=== PATIENT | male | born 1950 | race Two or more races ===

== ENCOUNTER → 2016-03-10 | Outpatient (CLI) | payer OTHER ==
--- NOTE | 2016-03-10 12:03 | CT ---
CT Brain (Without Contrast) at 1030 hours History: R20.2: Paresthesias of the skin. Numbness and occipital area and both arms and hands after sleeping with a pillow. Comparison: None. Technique: Axial computed tomographic images of the brain without contrast. Dose reduction technique s were utilized. Findings: Benign 5 mm calcification in the left frontal cortex, image 22 of series 2. Benign-appeari ng 4 mm calcification in the left lentiform nucleus, image 18 of series 2. There is a 2 mm calcificat ion in the left posterior superior frontal lobe sulcus region. Ventricles, cisterns, and sulci are no rmal without atrophy, hydrocephalus, midline shift/herniation, or epidural/subdural hematomas. No acu te intraparenchymal hemorrhage, definite infarct, or mass effect. Bone windows demonstrate no displac ed fractures. Paranasal sinuses and mastoid air cells are clear. Impression: 1. 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 2. No acute hemorrhage, hydrocephalus or mass effect. 3.Recommend MRI of the brain without and with contrast enhancement, if there is continued clinical co ncern.
== END ==
LOC: CIMAGING 10:18
PROVIDERS: ATTEND Family Medicine
DX: R90.89 Other abnormal findings on diagnostic imaging of central nervous system (principal)
CPT/HCPCS: 70450-PO

== ENCOUNTER → 2016-04-06 | Outpatient (CLI) | payer OTHER | LOC: FIMAGING 13:59 | PROVIDERS: ATTEND Family Medicine | DX: M50.31 Other cervical disc degeneration, high cervical region (principal); M50.321 Other cervical disc degeneration at C4-C5 level; M50.322 Other cervical disc degeneration at C5-C6 level ==